=== PATIENT | male | born 2000 | race Two or more races ===

== ENCOUNTER 2019-06-23 15:31 | Inpatient (IN) | payer OTHER ==
[~2019-06-23] VITALS: Ht 180.3 cm; Wt 82.6 kg
[2019-06-23 17:00] VITALS: BP 131/75
[2019-06-23] MEDS: OxyCODONE HCL 10 MG IR TABLET PO PRN ×2 (18:44→23:01)
[2019-06-23 19:00] VITALS: BP 131/75
[2019-06-23] MEDS ORDERED: ONDANSETRON HCL 4 MG TABLET PO PRN (20:00)
[2019-06-23] MEDS ORDERED: MAGNESIUM HYDROXIDE SUSPENSION 30 ML UDCUP PO PRN (20:00)
[2019-06-23] MEDS ORDERED: MELATONIN 3 MG TABLET PO PRN (21:30)
[2019-06-23] MEDS ORDERED: SENNA 187 MG TABLET PO PRN (21:30)
[2019-06-23] MEDS ORDERED: DOCUSATE SODIUM 100 MG CAPSULE PO PRN (21:30)
[2019-06-23] MEDS: GABAPENTIN 300 MG CAPSULE PO SCH (21:36)
[2019-06-23] MEDS: DOCUSATE SODIUM 100 MG CAPSULE PO SCH (21:36)
[2019-06-23] MEDS: ENOXAPARIN SODIUM 30 MG/0.3 ML PF SYRINGE SQ SCH (21:37)
[2019-06-23 23:01] VITALS: BP 133/71
[2019-06-24 07:28] VITALS: BP 122/61
[2019-06-24] MEDS: OxyCODONE HCL 10 MG IR TABLET PO PRN ×4 (07:28→20:29)
[2019-06-24 07:52] LABS: BASOPHILS % (AUTO) 0.6 % (0.0-2.0); EOSINOPHILS % (AUTO) 3.9 % (1.0-6.0); HEMATOCRIT 31.2 % (41-53); HEMOGLOBIN 10.7 g/dL (13.5-17.5); LYMPHOCYTES # (AUTO) 1.8 K/uL (1.0-4.8); LYMPHOCYTES % (AUTO) 16.6 % (22.0-44.0); MEAN CORPUSCULAR HEMOGLOBIN 31.5 pg (26.0-34.0); MEAN CORPUSCULAR HGB CONC 34.3 G/dL (31.0-37.0); MEAN CORPUSCULAR VOLUME 92 fL (80-100); MONOCYTES # (AUTO) 0.8 K/uL (0.1-1.0); MONOCYTES % (AUTO) 7.9 % (2.0-9.0); NEUTROPHILS # (AUTO) 7.5 K/uL (1.8-7.7); PLATELET COUNT (AUTO) 477 K/uL (150-450); RED CELL DISTRIBUTION WIDTH 12.6 % (11.5-14.5)
[2019-06-24 08:19] LABS: ALANINE AMINOTRANSFERASE 49 U/L (12-78); ALBUMIN 3.2 g/dL (3.4-5.0); ALKALINE PHOSPHATASE 160 U/L (46-116); ANION GAP 9 mmol/L (8-16); ASPARTATE AMINOTRANSFERASE 27 U/L (15-37); BILIRUBIN,TOTAL 0.5 mg/dL (0.1-1.0); CALCIUM, TOTAL 9.4 mg/dL (8.8-10.5); CARBON DIOXIDE 29 mmol/L (22-29); CHLORIDE 100 mmol/L (98-107); CREATININE 0.98 mg/dL (0.60-1.30); GLOMERULAR FILTR. RATE CALC > 60 mL/min (>60); GLUCOSE,RANDOM 94 mg/dL (70-110); POTASSIUM 4.1 mmol/L (3.5-5.1); SODIUM SERUM 138 mmol/L (136-145); TOTAL PROTEIN, SERUM 7.4 g/dL (6.4-8.2); UREA NITROGEN, BLOOD 23 mg/dL (7-18)
[2019-06-24] MEDS: GABAPENTIN 300 MG CAPSULE PO SCH ×3 (08:52→20:31)
[2019-06-24] MEDS: ENOXAPARIN SODIUM 30 MG/0.3 ML PF SYRINGE SQ SCH (08:52)
[2019-06-24] MEDS: LIDOCAINE 5% TRANSDERMAL PATCH TD SCH (08:52)
[2019-06-24] MEDS: DOCUSATE SODIUM 100 MG CAPSULE PO SCH ×2 (08:52→20:29)
[2019-06-24 16:04] VITALS: BP 119/65
[2019-06-24] MEDS: -LIDODERM PATCH NOTE- MISC SCH (20:31)
[2019-06-25 01:29] VITALS: BP 125/63
[2019-06-25] MEDS: OxyCODONE HCL 5 MG IR TABLET PO PRN (03:16)
[2019-06-25 08:24] VITALS: BP 122/70
[2019-06-25] MEDS: OxyCODONE HCL 10 MG IR TABLET PO PRN ×3 (08:24→17:08)
[2019-06-25] MEDS: ENOXAPARIN SODIUM 40 MG/0.4 ML PF SYRINGE SQ SCH (08:24)
[2019-06-25] MEDS: GABAPENTIN 300 MG CAPSULE PO SCH ×3 (08:24→21:01)
[2019-06-25] MEDS: DOCUSATE SODIUM 100 MG CAPSULE PO SCH ×2 (08:24→21:02)
[2019-06-25] MEDS: LIDOCAINE 5% TRANSDERMAL PATCH TD SCH (08:25)
[2019-06-25 16:33] VITALS: BP 104/61
[2019-06-25] MEDS: -LIDODERM PATCH NOTE- MISC SCH (21:01)
[2019-06-25 23:31] VITALS: BP 131/56
[2019-06-26] MEDS: OxyCODONE HCL 10 MG IR TABLET PO PRN ×4 (00:08→18:23)
[2019-06-26 08:29] VITALS: BP 123/61
[2019-06-26] MEDS: GABAPENTIN 300 MG CAPSULE PO SCH ×3 (10:09→21:10)
[2019-06-26] MEDS: DOCUSATE SODIUM 100 MG CAPSULE PO SCH ×2 (10:09→21:10)
[2019-06-26] MEDS: LIDOCAINE 5% TRANSDERMAL PATCH TD SCH (10:09)
[2019-06-26] MEDS: ENOXAPARIN SODIUM 40 MG/0.4 ML PF SYRINGE SQ SCH (10:11)
[2019-06-26 15:20] VITALS: BP 124/65
[2019-06-26] MEDS: ACETAMINOPHEN 325 MG TABLET PO PRN (21:11)
[2019-06-26] MEDS: -LIDODERM PATCH NOTE- MISC SCH (21:11)
[2019-06-26] MEDS: OxyCODONE HCL 5 MG IR TABLET PO PRN (22:33)
[2019-06-27] MEDS: ENOXAPARIN SODIUM 40 MG/0.4 ML PF SYRINGE SQ SCH (08:23)
[2019-06-27] MEDS: LIDOCAINE 5% TRANSDERMAL PATCH TD SCH (08:23)
[2019-06-27] MEDS: GABAPENTIN 300 MG CAPSULE PO SCH ×3 (08:23→20:36)
[2019-06-27] MEDS: DOCUSATE SODIUM 100 MG CAPSULE PO SCH ×2 (08:23→20:36)
[2019-06-27 08:24] VITALS: BP 124/60
[2019-06-27] MEDS: OxyCODONE HCL 10 MG IR TABLET PO PRN ×2 (08:24→20:36)
[2019-06-27] MEDS ORDERED: ENOXAPARIN SODIUM 30 MG/0.3 ML PF SYRINGE SQ SCH (09:00)
[2019-06-27] MEDS: OxyCODONE HCL 5 MG IR TABLET PO PRN (16:24)
[2019-06-27 18:01] VITALS: BP 123/62
[2019-06-27] MEDS: -LIDODERM PATCH NOTE- MISC SCH (20:36)
[2019-06-27 23:01] VITALS: BP 125/57
[2019-06-28] MEDS: OxyCODONE HCL 10 MG IR TABLET PO PRN ×3 (01:08→13:01)
[2019-06-28] MEDS: GABAPENTIN 300 MG CAPSULE PO SCH ×3 (08:06→20:24)
[2019-06-28] MEDS: ENOXAPARIN SODIUM 40 MG/0.4 ML PF SYRINGE SQ SCH (08:06)
[2019-06-28] MEDS: DOCUSATE SODIUM 100 MG CAPSULE PO SCH ×2 (08:06→20:24)
[2019-06-28] MEDS: LIDOCAINE 5% TRANSDERMAL PATCH TD SCH (08:07)
[2019-06-28 08:15] VITALS: BP 111/68
[2019-06-28] MEDS: ACETAMINOPHEN 325 MG TABLET PO PRN (10:29)
[2019-06-28] MEDS ORDERED: MULTIVITAMINS WITH MINERALS, THERAPEUTIC TABLET PO ONE (13:00)
[2019-06-28 15:47] VITALS: BP 121/67
[2019-06-28] MEDS: OxyCODONE HCL 10 MG ER TABLET PO SCH (20:24)
[2019-06-28] MEDS: -LIDODERM PATCH NOTE- MISC SCH (20:24)
[2019-06-28] MEDS: OxyCODONE HCL 5 MG IR TABLET PO PRN (22:05)
[2019-06-28 23:05] VITALS: BP 126/57
[2019-06-28 23:47] LABS: APPEARANCE,URINE CLEAR (CLEAR); BILIRUBIN,URINE NEGATIVE (NEGATIVE); GLUCOSE, URINE (UA) NEGATIVE (NEGATIVE); KETONES,URINE NEGATIVE (NEGATIVE); LEUKOCYTE ESTERASE ,URINE NEGATIVE (NEGATIVE); NITRATE,URINE NEGATIVE (NEGATIVE); OCCULT BLOOD,URINE NEGATIVE (NEGATIVE); PH,URINE 6.5 (5.0-8.0); PROTEIN,URINE NEGATIVE (NEGATIVE); UROBILINOGEN,URINE 0.2 mg/dL (<=1.0)
[2019-06-29 08:00] VITALS: BP 115/56
[2019-06-29] MEDS: OxyCODONE HCL 10 MG ER TABLET PO SCH ×2 (08:06→20:10)
[2019-06-29] MEDS: ENOXAPARIN SODIUM 40 MG/0.4 ML PF SYRINGE SQ SCH (08:06)
[2019-06-29] MEDS: LIDOCAINE 5% TRANSDERMAL PATCH TD SCH (08:06)
[2019-06-29] MEDS: DOCUSATE SODIUM 100 MG CAPSULE PO SCH ×2 (08:07→20:10)
[2019-06-29] MEDS: GABAPENTIN 300 MG CAPSULE PO SCH ×3 (08:07→20:10)
[2019-06-29] MEDS: OxyCODONE HCL 5 MG IR TABLET PO PRN ×2 (10:18→19:03)
[2019-06-29 16:13] VITALS: BP 120/61
[2019-06-29] MEDS: -LIDODERM PATCH NOTE- MISC SCH (20:10)
[2019-06-29 23:00] VITALS: BP 129/69
[2019-06-30 07:40] VITALS: BP 109/8
[2019-06-30] MEDS: OxyCODONE HCL 10 MG ER TABLET PO SCH ×2 (08:21→21:59)
[2019-06-30] MEDS: LIDOCAINE 5% TRANSDERMAL PATCH TD SCH (08:21)
[2019-06-30] MEDS: GABAPENTIN 300 MG CAPSULE PO SCH ×3 (08:21→21:59)
[2019-06-30] MEDS: ENOXAPARIN SODIUM 40 MG/0.4 ML PF SYRINGE SQ SCH (08:21)
[2019-06-30] MEDS: DOCUSATE SODIUM 100 MG CAPSULE PO SCH ×2 (08:22→21:59)
[2019-06-30 08:32] VITALS: BP 117/58
[2019-06-30 16:47] VITALS: BP 100/54
[2019-06-30] MEDS: OxyCODONE HCL 5 MG IR TABLET PO PRN (17:44)
[2019-06-30] MEDS: -LIDODERM PATCH NOTE- MISC SCH (21:58)
[2019-07-01 00:51] VITALS: BP 135/59
[2019-07-01] MEDS: OxyCODONE HCL 5 MG IR TABLET PO PRN (00:51)
[2019-07-01] MEDS: ENOXAPARIN SODIUM 40 MG/0.4 ML PF SYRINGE SQ SCH (09:03)
[2019-07-01] MEDS: LIDOCAINE 5% TRANSDERMAL PATCH TD SCH (09:03)
[2019-07-01] MEDS: GABAPENTIN 300 MG CAPSULE PO SCH ×3 (09:04→20:44)
[2019-07-01] MEDS: DOCUSATE SODIUM 100 MG CAPSULE PO SCH ×2 (09:04→20:43)
[2019-07-01] MEDS: OxyCODONE HCL 10 MG ER TABLET PO SCH ×2 (09:04→20:44)
[2019-07-01 09:19] VITALS: BP 115/59
[2019-07-01 17:09] VITALS: BP 125/63
[2019-07-01] MEDS: OxyCODONE HCL 10 MG IR TABLET PO PRN (18:56)
[2019-07-01] MEDS: -LIDODERM PATCH NOTE- MISC SCH (20:43)
[2019-07-02 00:38] VITALS: BP 128/73
[2019-07-02 07:29] VITALS: BP 114/53
[2019-07-02] MEDS: OxyCODONE HCL 10 MG IR TABLET PO PRN ×2 (07:39→17:44)
[2019-07-02] MEDS: LIDOCAINE 5% TRANSDERMAL PATCH TD SCH (08:30)
[2019-07-02] MEDS: OxyCODONE HCL 10 MG ER TABLET PO SCH ×2 (08:30→20:16)
[2019-07-02] MEDS: GABAPENTIN 300 MG CAPSULE PO SCH ×3 (08:30→20:15)
[2019-07-02] MEDS: ENOXAPARIN SODIUM 40 MG/0.4 ML PF SYRINGE SQ SCH (08:30)
[2019-07-02] MEDS: DOCUSATE SODIUM 100 MG CAPSULE PO SCH ×2 (08:31→20:15)
[2019-07-02 16:37] VITALS: BP 114/76
[2019-07-02] MEDS: -LIDODERM PATCH NOTE- MISC SCH (20:17)
[2019-07-02 23:23] VITALS: BP 121/54
[2019-07-03] MEDS ORDERED: OXYC10TA59 PO (03:38)
[2019-07-03] MEDS ORDERED: DOCU-275 PO (03:38)
[2019-07-03] MEDS ORDERED: GABA-531 PO (03:38)
[2019-07-03] MEDS: OxyCODONE HCL 5 MG IR TABLET PO PRN (04:00)
[2019-07-03 09:50] VITALS: BP 115/61
[2019-07-03] MEDS: GABAPENTIN 300 MG CAPSULE PO SCH ×3 (10:09→21:01)
[2019-07-03] MEDS: ENOXAPARIN SODIUM 40 MG/0.4 ML PF SYRINGE SQ SCH (10:09)
[2019-07-03] MEDS: OxyCODONE HCL 10 MG ER TABLET PO SCH ×2 (10:09→21:01)
[2019-07-03] MEDS: DOCUSATE SODIUM 100 MG CAPSULE PO SCH ×2 (10:10→21:01)
[2019-07-03] MEDS: LIDOCAINE 5% TRANSDERMAL PATCH TD SCH (10:10)
[2019-07-03 15:30] VITALS: BP 114/69
[2019-07-03] MEDS: OxyCODONE HCL 10 MG IR TABLET PO PRN (15:32)
[2019-07-03] MEDS: -LIDODERM PATCH NOTE- MISC SCH (21:01)
[2019-07-03 23:30] VITALS: BP 105/75
[2019-07-04] MEDS: OxyCODONE HCL 10 MG IR TABLET PO PRN ×2 (05:03→19:04)
[2019-07-04 10:20] VITALS: BP 110/61
[2019-07-04] MEDS: ENOXAPARIN SODIUM 40 MG/0.4 ML PF SYRINGE SQ SCH (10:40)
[2019-07-04] MEDS: GABAPENTIN 300 MG CAPSULE PO SCH ×3 (10:40→22:03)
[2019-07-04] MEDS: OxyCODONE HCL 10 MG ER TABLET PO SCH ×2 (10:40→22:03)
[2019-07-04] MEDS: LIDOCAINE 5% TRANSDERMAL PATCH TD SCH (10:40)
[2019-07-04] MEDS: DOCUSATE SODIUM 100 MG CAPSULE PO SCH ×2 (10:40→22:03)
[2019-07-04 16:00] VITALS: BP 124/69
[2019-07-04] MEDS: -LIDODERM PATCH NOTE- MISC SCH (22:03)
[2019-07-05] VITALS: BP 121/66
[2019-07-05 09:00] VITALS: BP 105/57
[2019-07-05] MEDS: GABAPENTIN 300 MG CAPSULE PO SCH ×3 (09:07→21:41)
[2019-07-05] MEDS: ENOXAPARIN SODIUM 40 MG/0.4 ML PF SYRINGE SQ SCH (09:07)
[2019-07-05] MEDS: DOCUSATE SODIUM 100 MG CAPSULE PO SCH ×2 (09:08→21:41)
[2019-07-05] MEDS: OxyCODONE HCL 10 MG ER TABLET PO SCH ×2 (09:08→21:41)
[2019-07-05] MEDS: LIDOCAINE 5% TRANSDERMAL PATCH TD SCH (09:08)
[2019-07-05] MEDS: ASPIRIN 81 MG CHEWABLE TABLET PO SCH (09:10)
[2019-07-05] MEDS ORDERED: ASPI81TA39 PO (13:45)
[2019-07-05 15:20] VITALS: BP 119/66
[2019-07-05] MEDS: OxyCODONE HCL 10 MG IR TABLET PO PRN (16:37)
[2019-07-05] MEDS: -LIDODERM PATCH NOTE- MISC SCH (21:41)
[2019-07-05 23:56] VITALS: BP 127/68
[2019-07-06] MEDS: DOCUSATE SODIUM 100 MG CAPSULE PO SCH (10:06)
[2019-07-06] MEDS: GABAPENTIN 300 MG CAPSULE PO SCH (10:06)
[2019-07-06] MEDS: OxyCODONE HCL 10 MG ER TABLET PO SCH (10:07)
[2019-07-06] MEDS: ASPIRIN 81 MG CHEWABLE TABLET PO SCH (10:07)
[2019-07-06] MEDS: ENOXAPARIN SODIUM 40 MG/0.4 ML PF SYRINGE SQ SCH (10:07)
[2019-07-06] MEDS: LIDOCAINE 5% TRANSDERMAL PATCH TD SCH (10:10)
[2019-07-06] MEDS ORDERED: OXYC5 PO (11:53)
== END 2019-07-06 12:45 | disposition home or self-care (01) | DRG 964 ==
LOC: UNDOADMIN 16:50 → 2WR 16:50
DX: S06.0X1A Concussion with loss of consciousness of 30 minutes or less, initial encounter (principal); S22.5XXA Flail chest, initial encounter for closed fracture; S32.059A Unspecified fracture of fifth lumbar vertebra, initial encounter for closed fracture; S32.512A Fracture of superior rim of left pubis, initial encounter for closed fracture; S32.10XA Unspecified fracture of sacrum, initial encounter for closed fracture; S32.2XXA Fracture of coccyx, initial encounter for closed fracture; S32.592A Other specified fracture of left pubis, initial encounter for closed fracture; Z90.49 Acquired absence of other specified parts of digestive tract
CPT/HCPCS: 87081; 92507; 92523; 97110; 97116; 97150; 97163; 97166; 97530; 97535; 99366; J1650